=== PATIENT | female | born 1985 | race Caucasian/White ===

== ENCOUNTER → 2016-08-31 | Outpatient (CLI) | payer BC ==
[2016-08-31 12:54] LABS: BASOPHILS # (AUTO) 0 10*3/UL; BASOPHILS % (AUTO) 0 % (0-1); EOSINOPHILS % (AUTO) 0 % (0-8); HEMATOCRIT 43.5 % (37.0-47.0); HEMOGLOBIN 15.2 g/dL (12.0-16.0); IMM GRAN % (AUTO) 0 % (0-5); IMM GRAN# (AUTO) 0 10*3/UL; LYMPHOCYTES # (AUTO) 3.17 10*3/uL; LYMPHOCYTES % (AUTO) 44.5 % (10-50); MEAN CORPUSCULAR HEMOGLOBIN 31.7 PG (27-31); MEAN CORPUSCULAR HGB CONC 34.9 g/dL (33-37); MEAN PLATELET VOLUME 9.1 FL (7.4-12.2); NEUTROPHILS # (AUTO) 3.46 10*3/UL; NEUTROPHILS % (AUTO) 48.5 % (50-80); RDW COEFFICIENT OF VARIATION 12.5 % (11.5-14.5); RED BLOOD COUNT 4.79 10^6/uL (4.20-5.40); WHITE BLOOD COUNT 7.13 10^3/uL (4.8-10.8)
[2016-08-31 12:57] LABS: PLATELET MORPHOLOGY COMMENT NORMAL MORPHOLOGY (NORM)
[2016-08-31 13:07] LABS: HEMOGLOBIN A1C 5.28 % (4.2-6.0); MEAN BLOOD GLUCOSE (CALC) 89.824 mg/dL
== END ==
LOC: LAB 12:37
PROVIDERS: ATTEND Nurse Practitioner Psychiatric/Mental Health
DX: F33.1 Major depressive disorder, recurrent, moderate (principal); F41.1 Generalized anxiety disorder
CPT/HCPCS: 36415; 83036; 84436; 84443; 84480; 85025